=== PATIENT | male | born 1975 | race African-American/Black ===

== ENCOUNTER 2017-03-07 07:37 | Emergency (ER) | payer SELFPAY ==
[~2017-03-07] VITALS: Ht 177.8 cm; Wt 124.0 kg
[~2017-03-07 07:37] MED LIST: ALLO100T; INDERAL; INDO-53
[2017-03-07] MEDS ORDERED: INDOMETHACIN 50MG CAPSULE PO ONE (08:45)
[2017-03-07 08:56] VITALS: BP 161/102
== END 2017-03-07 09:44 | disposition home or self-care (01) ==
LOC: ER 07:37
DX: M10.012 Idiopathic gout, left shoulder (principal); R03.0 Elevated blood-pressure reading, without diagnosis of hypertension; Z71.89 Other specified counseling; Z76.0 Encounter for issue of repeat prescription
CPT/HCPCS: 99283

== ENCOUNTER 2017-12-24 10:48 | Emergency (ER) | payer SELFPAY ==
[~2017-12-24] VITALS: Ht 177.8 cm; Wt 123.0 kg
[~2017-12-24 10:48] MED LIST changes: -INDERAL
[2017-12-24 11:01] VITALS: BP 166/100
== END 2017-12-24 15:07 | disposition home or self-care (01) ==
LOC: ER 11:02
DX: M10.9 Gout, unspecified (principal); M25.521 Pain in right elbow; M25.562 Pain in left knee
CPT/HCPCS: 99283

== ENCOUNTER 2018-05-01 10:06 | Emergency (ER) | payer SELFPAY ==
[~2018-05-01] VITALS: Ht 177.8 cm; Wt 118.0 kg
[2018-05-01 10:30] VITALS: BP 162/99
== END 2018-05-01 11:54 | disposition home or self-care (01) ==
LOC: ER 11:07
DX: M10.9 Gout, unspecified (principal); R03.0 Elevated blood-pressure reading, without diagnosis of hypertension; Z76.0 Encounter for issue of repeat prescription
CPT/HCPCS: 99283; J7030

== ENCOUNTER 2018-12-23 10:05 | Emergency (ER) | payer SELFPAY ==
[~2018-12-23] VITALS: Ht 177.8 cm; Wt 127.0 kg
[~2018-12-23 10:05] MED LIST changes: -INDO-53; +INDO50CA14
[2018-12-23 12:35] VITALS: BP 170/91
== END 2018-12-23 12:35 | disposition home or self-care (01) ==
LOC: ER 10:22
DX: M10.9 Gout, unspecified (principal)
CPT/HCPCS: 99283

== ENCOUNTER 2019-03-04 12:33 | Emergency (ER) | payer SELFPAY ==
[~2019-03-04] VITALS: Ht 177.8 cm; Wt 127.5 kg
[2019-03-04 13:52] VITALS: BP 175/94
== END 2019-03-04 13:54 | disposition home or self-care (01) ==
LOC: ER 13:19
DX: M10.9 Gout, unspecified (principal); Z76.0 Encounter for issue of repeat prescription; I10 Essential (primary) hypertension
CPT/HCPCS: 99283

== ENCOUNTER 2024-03-19 16:17 | Emergency (ER) | payer MEDICAID ==
[~2024-03-19] VITALS: Ht 175.3 cm; Wt 108.0 kg
[~2024-03-19 16:17] MED LIST changes: -INDO50CA14; +INDO50CA99
[2024-03-19 16:31] VITALS: BP 151/93; PULSE 92; RESP 18; TEMP 98.3; O2SAT 98
[2024-03-20] MEDS ORDERED: MED4 MT (10:58)
[2024-03-20] MEDS ORDERED: INDO50CA98 MT (10:58)
[2024-03-20] MEDS ORDERED: ALLO100T MT (10:59)
== END 2024-03-19 21:56 | disposition left against medical advice (07) ==
LOC: ER 16:17
DX: M25.561 Pain in right knee (principal); Z53.21 Procedure and treatment not carried out due to patient leaving prior to being seen by health care provider
CPT/HCPCS: 99281

== ENCOUNTER 2024-03-20 08:43 | Emergency (ER) | payer MEDICAID ==
[~2024-03-20] VITALS: Ht 175.3 cm; Wt 115.0 kg
[2024-03-20 08:48] VITALS: O2SAT 99
[2024-03-20] MEDS ORDERED: INDO50CA98 MT (10:58)
[2024-03-20] MEDS ORDERED: MED4 MT (10:58)
[2024-03-20] MEDS ORDERED: ALLO100T MT (10:59)
[2024-03-20 11:38] VITALS: BP 148/94; PULSE 90; RESP 20; TEMP 98.6
== END 2024-03-20 11:44 | disposition home or self-care (01) ==
LOC: ER 08:43
DX: M10.9 Gout, unspecified (principal); M25.561 Pain in right knee; M25.562 Pain in left knee
CPT/HCPCS: 99283

== ENCOUNTER 2024-11-13 11:48 | Emergency (ER) | payer MEDICAID ==
[~2024-11-13] VITALS: Ht 175.3 cm; Wt 92.0 kg
[~2024-11-13 11:48] MED LIST changes: +ALLO100T MT; +INDO50CA98 MT; +METH4TAB95 MT
[2024-11-13 12:01] VITALS: BP 177/93; PULSE 97; RESP 16; TEMP 98.6; O2SAT 99
[2024-11-13] MEDS ORDERED: INDO50CA98 MT (15:51)
== END 2024-11-13 16:28 | disposition home or self-care (01) ==
LOC: ER 12:41
DX: M10.9 Gout, unspecified (principal); Z79.899 Other long term (current) drug therapy; Z98.890 Other specified postprocedural states
CPT/HCPCS: 99281

== ENCOUNTER 2025-09-23 09:02 | Emergency (ER) | payer MEDICAID ==
[~2025-09-23] VITALS: Ht 177.8 cm; Wt 109.0 kg
[2025-09-23 09:10] VITALS: O2SAT 100
[2025-09-23] MEDS ORDERED: INDO-13 MT (10:25)
[2025-09-23 10:54] VITALS: BP 179/90; PULSE 85; RESP 22; TEMP 36.9; O2SAT 100
== END 2025-09-23 10:55 | disposition home or self-care (01) ==
LOC: ER 09:25
DX: M25.562 Pain in left knee (principal); M10.9 Gout, unspecified; F10.90 Alcohol use, unspecified, uncomplicated; Z76.0 Encounter for issue of repeat prescription; Z79.899 Other long term (current) drug therapy; Y90.9 Presence of alcohol in blood, level not specified
CPT/HCPCS: 99283